=== PATIENT | female | born 1950 | race Caucasian/White ===

== ENCOUNTER 2016-09-27 20:32 | Emergency (ER) | payer MEDICARE ==
--- NOTE | 2016-09-27 22:59 | EDM.PDOC ---
ED HISTORY OF PRESENT ILLNESS - General Chief Complaint: Respiratory Problem Stated Complaint: PNEUMONIA SOB Time Seen by Provider: 09/27/16 22:57 Source: Reports: Patient History Limitations: Reports: No limitations - History of Present Illness INITIAL COMMENTS - FREE TEXT/NARRATIVE: Pt was found to have influ a on the 18 of September. She got better interms of the fever but now she is coughing alot and has been wheezy. Timing/Duration: Reports: Day(s): Location, General: Reports: chest Associated Symptoms: Reports: cough, fever/chills, malaise - Related Data Allergies/ADRs: Allergies Allergy/AdvReac Type Severity Reaction Status Date / Time Iodinated Contrast Media - Allergy Swelling Verified 09/27/16 22:00 Oral and [Iodinated Contrast Media - IV Dye] Sulfa (Sulfonamide Allergy Cannot Verified 09/27/16 22:00 Antibiotics) Remember Home Meds: Home Meds Albuterol Sulfate [Proair Hfa] 2 puff IH Q4HR PRN 09/06/14 [History] Past Medical History HEENT History: Reports: Cataract, Impaired vision Respiratory History: Reports: Asthma, COPD Genitourinary History: Reports: UTI, recurrent 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 cerebal palsy, born with curvature of spine Oncologic (Cancer) History: Reports: Colon, Lung Dermatologic History: Reports: Psoriasis - Infectious Disease History Infectious Disease History: Reports: Chicken pox, Influenza, Measles, Mumps - Past Surgical History HEENT Surgical History: Reports: None Respiratory Surgical History: Reports: Lung Resection Other Respiratory Surgeries/Procedures: left WEDGE for lung cancer in GI Surgical History: Reports: Colon, Colonoscopy, Colostomy, Other (see below) Other GI Surgeries/Procedures: hx colon ca Oncologic Surgical History: Reports: Other (see below) Other Oncologic Surgeries/Procedures: left lung wedge, colostomy Social & Family History - Tobacco Use Smoking Status *Q: Current Every Day Smoker Years of Tobacco use: 50 Packs/Tins Daily: 0.5 Second Hand Smoke Exposure: No - Caffeine Use Caffeine Use: Reports: Coffee - Alcohol Use Days Per Week of Alcohol Use: 0 - Recreational Drug Use Recreational Drug Use: No ED ROS GENERAL - Review of Systems Review Of Systems: See Below Constitutional: Reports: chills, malaise HEENT: Reports: No symptoms Respiratory: Reports: Cough Cardiovascular: Reports: No symptoms Endocrine: Reports: no symptoms GI/Abdominal: Reports: No symptoms : Reports: no symptoms ED EXAM, GENERAL - Physical Exam Exam: See Below Free Text/Narrative:: Pt is feeling tired. She is coughing alot. She has raised some sputum. Exam Limited By: No limitations General Appearance: alert, anxious, mild distress Ears: normal TMs Nose: normal inspection Throat/Mouth: Normal inspection Head: atraumatic Neck: normal inspection Respiratory/Chest: decreased breath sounds, wheezing Cardiovascular: regular rate, rhythm GI/Abdominal: soft, non tender Rectal (Female) Exam: Deferred Back Exam: normal inspection Extremities: normal inspection Neurological: alert, oriented Psychiatric: normal affect Course - Vital Signs Last Recorded V/S: Last Vital Signs Temp 37.2 C 09/27/16 22:02 Pulse 81 09/27/16 23:21 Resp 19 09/27/16 23:21 BP 124/68 09/27/16 23:21 Pulse Ox 93 L 09/27/16 23:21 - Orders/Labs/Meds Labs: Laboratory Tests 09/27/16 09/27/16 09/27/16 Range/Units 23:06 23:06 23:06 WBC 10.7 (4.5-11.0) K/uL RBC 4.18 (3.30-5.50) M/uL Hgb 12.6 (12.0-15.0) g/dL Hct 38.1 (36.0-48.0) % MCV 91 (80-98) fL MCH 30 (27-31) pg MCHC 33 (32-36) % Plt Count 364 (150-400) K/uL Neut % (Auto) 76 H (36-66) % Lymph % (Auto) 11 L (24-44) % [place] % (Auto) 12 H (2-6) % Eos % (Auto) 1 L (2-4) % Baso % (Auto) 0 (0-1) % Sodium 137 L (140-148) mmol/L Potassium 3.7 (3.6-5.2) mmol/L Chloride 98 L (100-108) mmol/L Carbon Dioxide 33 H (21-32) mmol/L Anion Gap 9.7 (5.0-14.0) mmol/L BUN 9 (7-18) mg/dL Creatinine 0.8 D (0.6-1.0) mg/dL Est Cr Clr Drug Dosing 44.71 mL/min Estimated GFR (MDRD) > 60 (>60) Glucose 112 H (74-106) mg/dL Calcium 8.2 L (8.5-10.1) mg/dL Total Bilirubin 0.4 (0.2-1.0) mg/dL AST 20 (15-37) U/L ALT 15 (12-78) U/L Alkaline Phosphatase 53 (46-116) U/L C-Reactive Protein 9.13 H (0.0-0.3) mg/dL Total Protein 6.9 (6.4-8.2) g/dL Albumin 2.7 L (3.4-5.0) g/dL Globulin 4.2 H (2.3-3.5) g/dL Albumin/Globulin Ratio 0.6 L (1.2-2.2) Meds: Medications Discontinued Medications Generic Name Dose Route Start Last Admin Trade Name Freq PRN Reason Stop Dose Admin Albuterol 2.5 mg 09/27/16 23:13 09/27/16 23:19 Proventil Neb Soln NEB 09/27/16 23:14 2.5 mg ONETIME ONE Administration Azithromycin 500 mg 09/27/16 23:19 09/27/16 23:28 Zithromax PO 09/27/16 23:20 500 mg ONETIME ONE Administration - Re-Assessments/Exams Free Text/Narrative Re-Assessment/Exam: 09/27/16 23:16 wbc is not elevated. Her chest xray shows alot of chronic lung changes. No definite infiltrate. She has a past history of a mass in the chest. 09/27/16 23:45 Departure - Departure Time of Disposition: 23:46 Disposition: Home, Self-Care 01 Condition: fair Clinical Impression: Bronchitis Instructions: Acute Bronchitis Referrals: Rogerio Farr MD [Primary Care Provider] - Forms: ED Department Discharge Care Plan Goals: cont to use inhaler q4h, push fluids, zithromax 500mg now and 250 daily for the next 7 days. follow up at the clinic with regular
[2016-09-27] MEDS ORDERED: Albuterol 0.083% 2.5 MG/3 ML Neb Soln NEB ONE (23:13)
[2016-09-27] MEDS ORDERED: Azithromycin 250 MG Tab PO ONE (23:19)
[2016-09-27 23:22] VITALS: BP 124/68
--- NOTE | 2016-09-30 09:53 | CR ---
Two-view chest Comparison: November 2014. Findings: There is severe hyperinflation consistent with COPD. Surgical clips are demonstrated in th e left central lung. There is apical scarring. There is scarring in the peripheral left midlung as w ell. No infiltrates or effusions are demonstrated. The heart and vascular structures are stable. Impression: 1. Advanced COPD. 2. No acute findings.
== END 2016-09-27 23:58 | disposition home or self-care (01) ==
LOC: JP.ED 20:32
DX: J40 Bronchitis, not specified as acute or chronic (principal); J45.909 Unspecified asthma, uncomplicated; J44.9 Chronic obstructive pulmonary disease, unspecified; F17.210 Nicotine dependence, cigarettes, uncomplicated; Z85.038 Personal history of other malignant neoplasm of large intestine; Z85.118 Personal history of other malignant neoplasm of bronchus and lung; Z98.890 Other specified postprocedural states; Z88.2 Allergy status to sulfonamides; Z91.041 Radiographic dye allergy status
CPT/HCPCS: 36415; 71020; 80053; 85025; 86140; 94640; 99285; A9270; 99283

== ENCOUNTER 2018-08-29 17:17 | Emergency (ER) | payer MEDICARE ==
--- NOTE | 2018-08-29 18:20 | EDM.PDOC ---
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 At home she was running a temp of 101. She does have a history of colon Ca. She was told that she needed to be seen if she had a temp over 100. Onset: Today, Sudden Duration: Hour(s): Location: Reports: Other (pt does have a cough. 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 cerebal palsy, born with curvature of spine Oncologic (Cancer) History: Reports: Colon, Lung Dermatologic History: Reports: Psoriasis - Infectious Disease History Infectious Disease History: Reports: Chicken Pox, Influenza, Measles, Mumps - Past Surgical History Respiratory Surgical History: Reports: Lung Resection Other Respiratory Surgeries/Procedures: left WEDGE for lung cancer in GI Surgical History: Reports: Colon, Colonoscopy, Colostomy, Other (See Below) Oncologic Surgical History: Reports: Other (See Below) Social & Family History - Tobacco Use Smoking Status *Q: Current Every Day Smoker Years of Tobacco use: 45 Packs/Tins Daily: 0.5 - Caffeine Use Caffeine Use: Reports: Coffee ED ROS ENT - Review of Systems Review Of Systems: See Below Constitutional: Reports: Fever, Weakness HEENT: Reports: No Symptoms Respiratory: Reports: Cough Cardiovascular: Reports: No Symptoms Endocrine: Reports: No Symptoms GI/Abdominal: Reports: No Symptoms : Reports: No Symptoms Musculoskeletal: Reports: No Symptoms Skin: Reports: No Symptoms Neurological: Reports: No Symptoms Psychiatric: Reports: No Symptoms ED EXAM, ENT - Physical Exam Exam: See Below Text/Narrative:: pt arrived with a low grade temp. She is on chemo and she spiked a temp to greater than 100. Exam Limited By: No Limitations General Appearance: Alert, Anxious Ears: Normal TMs Nose: Normal Inspection Mouth/Throat: Normal Inspection Head: Atraumatic Neck: Normal Inspection Respiratory/Chest: No Respiratory Distress, Rhonchi Cardiovascular: Regular Rate, Rhythm GI/Abdominal: Soft, Non-Tender (Female) Exam: Deferred Rectal (Female) Exam: Deferred Back: Normal Inspection Extremities: Normal Inspection Neurological: Alert, Oriented, Normal Cognition Psychiatric: Normal Affect Course - Vital Signs Last Recorded V/S: Last Vital Signs Temp 37.6 C 08/29/18 18:14 Pulse 91 08/29/18 19:09 Resp 16 08/29/18 18:14 BP 122/64 08/29/18 19:09 Pulse Ox 95 08/29/18 19:09 - Orders/Labs/Meds Labs: Laboratory Tests 08/29/18 08/29/18 08/29/18 Range/Units 17:41 18:19 18:53 WBC 4.6 (4.5-11.0) K/uL RBC 3.70 (3.30-5.50) M/uL Hgb 14.4 (12.0-15.0) g/dL Hct 41.2 (36.0-48.0) % MCV 111 H (80-98) fL MCH 39 H (27-31) pg MCHC 35 (32-36) % Plt Count 153 (150-400) K/uL Neut % (Auto) 74 H (36-66) % Lymph % (Auto) 9 L (24-44) % [place] % (Auto) 14 H (2-6) % Eos % (Auto) 3 (2-4) % Baso % (Auto) 0 (0-1) % Sodium 133 L (140-148) mmol/L Potassium 4.4 (3.6-5.2) mmol/L Chloride 97 L (100-108) mmol/L Carbon Dioxide 28 (21-32) mmol/L Anion Gap 12.4 (5.0-14.0) mmol/L BUN 12 (7-18) mg/dL Creatinine 0.7 (0.6-1.0) mg/dL Est Cr Clr Drug Dosing 45.54 mL/min Estimated GFR (MDRD) > 60 (>60) Glucose 105 (74-106) mg/dL Calcium 8.8 (8.5-10.1) mg/dL Total Bilirubin 0.8 D (0.2-1.0) mg/dL AST 42 H D (15-37) U/L ALT 26 (12-78) U/L Alkaline Phosphatase 143 H D (46-116) U/L Total Protein 7.1 (6.4-8.2) g/dL Albumin 3.6 (3.4-5.0) g/dL Globulin 3.5 (2.3-3.5) g/dL Albumin/Globulin Ratio 1.0 L (1.2-2.2) Urine Color Yellow Urine Appearance Cloudy Urine pH 5.0 (4.5-8.0) Ur Specific [place] 1.020 (1.008-1.030) Urine Protein Trace (NEGATIVE) mg/dL Urine Glucose (UA) Normal (NEGATIVE) mg/dL Urine Ketones 15 H (NEGATIVE) mg/dL Urine Occult Blood Large (NEGATIVE) Urine Nitrite Negative (NEGATIVE) Urine Bilirubin Small (NEGATIVE) Urine Urobilinogen Normal (NORMAL) mg/dL Ur Leukocyte Esterase Moderate (NEGATIVE) Urine RBC 5-10 H (0-5) Urine WBC Semi-packed H (0-5) Ur Epithelial Cells Few Amorphous Sediment Few Urine Bacteria Few Urine Mucus Moderate Urinalysis Comment Clue cells seen Meds: Medications Discontinued Medications Generic Name Dose Route Start Last Admin Trade Name Freq PRN Reason Stop Dose Admin Sodium Chloride 1,000 mls @ 999 mls/hr 08/29/18 19:30 08/29/18 19:51 Normal Saline IV 999 mls/hr ASDIRECTED DORIE Administration Ceftriaxone Sodium 1 gm/ 50 mls @ 100 mls/hr 08/29/18 19:31 08/29/18 19:51 Sodium Chloride IV 08/29/18 20:00 100 mls/hr ONETIME ONE Administration - Re-Assessments/Exams Free Text/Narrative Re-Assessment/Exam: 08/29/18 19:59 wbc is 4,000. Her urine is concentrated and looks infected. A culture was set up. Departure - Departure Time of Disposition: 19:59 Disposition: Home, Self-Care 01 Condition: Fair Clinical Impression: UTI (urinary tract infection), Chemotherapy follow-up examination - Discharge Information Instructions: Urinary Tract Infection, Adult, [id number] Referrals: Rogerio Farr MD [Primary Care Provider] - Forms: ED Department Discharge Care Plan Goals: push fluids, cipro 500mg bid for the next week. appt with Dr Farr on Friday.
[2018-08-29 19:10] VITALS: BP 122/64
--- NOTE | 2018-08-29 19:18 | CRLCR ---
TECHNIQUE: PA and lateral chest. INDICATION: Fever. COMPARISON: 07/28/[address] FINDINGS: Marked hyperinflation and emphysema. Surgical clips in the left mid lung and mediastinum. No focal consolidation. No pleural effusion or pneumothorax. Heart size and pulmonary vascularity are normal. IMPRESSION: Emphysema. No acute findings. Dictated by Michael Yoon MD @ 08/29/2018 7:17:09 PM Dictated by: Michael Yoon MD @ 08/29/2018 19:17:19 (Electronically Signed)
[2018-08-29] MEDS ORDERED: Sodium Chloride 0.9% 1,000 ML IV SCH (19:30)
[2018-08-29] MEDS ORDERED: cefTRIAXone 1 GM in Sodium Chloride 0.9% 50 ML IV ONE (19:31)
== END 2018-08-29 21:24 | disposition home or self-care (01) ==
LOC: JP.ED 17:17
DX: N39.0 Urinary tract infection, site not specified (principal); J44.9 Chronic obstructive pulmonary disease, unspecified; F17.210 Nicotine dependence, cigarettes, uncomplicated; Z91.041 Radiographic dye allergy status; Z88.2 Allergy status to sulfonamides
CPT/HCPCS: 36415; 71046; 80053; 81001; 85025; 87086; 96365; 99283; J0696; J7030; J7050

== ENCOUNTER 2018-10-26 07:30 | Day surgery (SDC) | payer MEDICARE ==
[~2018-10-26 07:30] MED LIST: Bupivacaine 0.5% 50 ML MDV ONE; Lidocaine 1% with EPINEPHrine 1:100,000 50 ML MDV ONE
[2018-10-26] MEDS ORDERED: Ondansetron 4 MG/2 ML SDV ONE (07:39)
[2018-10-26] MEDS ORDERED: Dexamethasone 4 MG/ML SDV ONE (07:39)
[2018-10-26] MEDS ORDERED: Propofol 200 MG/20 ML SDV ONE ×2 (07:39→10:25)
[2018-10-26] MEDS ORDERED: Neostigmine Methylsulfate 1 MG/ML 5 ML Syringe ONE (07:39)
[2018-10-26] MEDS ORDERED: Glycopyrrolate 0.2 MG/ML 5 ML MDV ONE (07:39)
[2018-10-26] MEDS ORDERED: Rocuronium 50 MG/5 ML Vial ONE (07:39)
[2018-10-26] MEDS ORDERED: fentaNYL 250 MCG/5 ML SDV ONE (07:39)
[2018-10-26] MEDS ORDERED: Albuterol/Ipratropium 3.0-0.5 MG/3 ML Neb Soln NEB ONE (08:30)
[2018-10-26] MEDS ORDERED: Dextrose 5%-Lactated Ringers 1,000 ML IV SCH (08:30)
[2018-10-26] MEDS ORDERED: ceFAZolin 2 GM in Premix Bag 1 BAG IV ONE (08:30)
[2018-10-26] MEDS ORDERED: Midazolam 1 MG/ML 2 ML SDV ONE (10:26)
[2018-10-26] MEDS ORDERED: fentaNYL 100 MCG/2 ML SDV ONE (10:26)
[2018-10-26 11:24] VITALS: BP 104/60
--- NOTE | 2018-10-26 11:53 | CR ---
OR Xpqftu-JS-HAY Filter CLINICAL HISTORY: Central line placement FINDINGS: Is a single intraoperative image of the left upper chest for the use of the surgeon. There is been placement of a an Nroyqy-d-[id number] catheter from the left subclavian approach. The tip is in the cephalic superior vena caval junction. There is no evidence of pneumothorax IMPRESSION: Left subclavian Pzdrvs-[id number]-Emnu catheter placement
--- NOTE | 2018-10-28 10:20 | OR ---
DATE OF PROCEDURE: 10/26/2018 PREOPERATIVE DIAGNOSIS: Indication for central venous access. POSTOPERATIVE DIAGNOSIS: Indication for central venous access. PROCEDURE: Placement of Bard port via left subclavian vein approach ([id number]). ANESTHESIA: Local plus IV sedation. INDICATIONS FOR PROCEDURE: This is a 68-year-old presenting with stage IV colon carcinoma and is advised to undergo chemotherapy. Plan is to proceed with a placement of Bard port. Potential risks of the procedure including bleeding, infection, injury to underlying vasculature of the lung were reviewed, possibility of the port becoming infected or nonfunctional were all gone over and the patient wishes to proceed. DETAILS OF PROCEDURE: The patient was taken to the operating room and placed in a supine position. The upper chest and neck areas were prepped and draped, and the left subclavian area was then anesthetized with 1% lidocaine. Subclavian vein was cannulated. Guidewire passed and manipulated into the superior vena cava. Some additional local anesthetic was injected and transverse infraclavicular incision was made and carried down through the skin, subcutaneous tissue, and through the pectoralis major fascia, and at lateral plane, a pocket was dissected free and the Bard port was then placed into the pocket after being prepared and flushed. The catheter was cut such that tip would lie into the superior vena cava and over the introducer and Peel-Away catheter, Bard port catheter was placed without difficulty. Incision was closed with some 3-0 and 4-0 Vicryl stitch deep and a 4-0 Vicryl subcuticular stitch. The port was then aspirated, good return was noted, and once again flushed with heparinized saline. Dressing was applied. The patient was taken to the recovery room in satisfactory condition. Haroon Bolden MD /[id number]
== END 2018-10-26 12:03 | disposition home or self-care (01) ==
LOC: JP.SDS 07:30
PROVIDERS: ATTEND Surgery
DX: C18.9 Malignant neoplasm of colon, unspecified (principal); C20 Malignant neoplasm of rectum; J44.9 Chronic obstructive pulmonary disease, unspecified; F17.200 Nicotine dependence, unspecified, uncomplicated
CPT/HCPCS: 36561; C1788; J0690; J1642; J2250; J2704; J3010; J3490; J7042; J1100; J2405; J2710; J7620-GY